=== PATIENT | male | born 1980 | race Caucasian/White ===

== ENCOUNTER 2016-05-01 14:29 | Emergency (ER) ==
[2016-05-01 14:29] VITALS: BMI 20.3
[2016-05-01 14:31] VITALS: BP 119/75; TEMP 97.5
--- NOTE | 2016-05-01 14:45 | ED.PDOC ---
General ED Provider: Dr. DORON URIBE Chief Complaint: Earache Stated Complaint: Left earache; started this AM Time Seen by Physician: 14:41 Mode of Arrival: Walk-In Information Source: Patient Exam Limitations: No limitations Nursing and Triage Documentation Reviewed and Agree: Yes Review of Systems - Review Of Systems Constitutional: Reports: No symptoms Eyes: Reports: No symptoms Ears, Nose, Mouth, Throat: Reports: Ear pain Respiratory: Reports: No symptoms All Other Systems: Reviewed and Negative Past Medical History - Past Medical History Previously Healthy: Yes Endocrine: Reports: None Cardiovascular: Reports: None Respiratory: Reports: None Hematological: Reports: None Gastrointestinal: Reports: None Genitourinary: Reports: None Neuro/Psych: Reports: None Musculoskeletal: Reports: None Cancer: Reports: None - Surgical History General Surgical History: Reports: None - Family History Family History: Reports: None - Social History Smoking Status: Never smoker Hx Substance Use: No Alcohol Screening: None Physical Exam - Physical Exam Appearance: Well-appearing Ill-appearing: Mild Pain Distress: Moderate ENT: Ears normal Neck: Supple Respiratory: Airway patent Skin: Warm, Dry, Normal color Neurological: Sensation intact Critical Care Note - Critical Care Note Total Time (mins): 7 Course - Course Vital Signs: Temp Pulse Resp BP Pulse Ox 05/01/16 14:29 97.5 F L 86 20 119/75 97 Departure - Departure Time of Disposition: 14:49 Disposition: HOME SELF-CARE Discharge Problem: Otalgia of left ear Instructions: Earache (ED) Condition: Good Pt referred to PMD for follow-up: Yes (Call for appointment) Additional Instructions: FOLLOW UP WITH YOUR DOCTOR FOR RECHECK OF YOUR EAR. Prescriptions: Amoxicillin 500 mg PO BID #14 capsule Tramadol HCl [Ultram] 50 mg PO Q4H #10 tablet Allergies/Adverse Reactions: Allergies No Known Allergies Allergy (Verified 05/01/16 14:32) Home Medications: Ambulatory Orders Amoxicillin 500 mg PO BID #14 capsule 05/01/16 Tramadol HCl [Ultram] 50 mg PO Q4H #10 tablet 05/01/16 Disposition Discussed With: Patient
== END 2016-05-01 14:57 | disposition home or self-care (01) ==
LOC: ED 14:29
DX: H92.02 Otalgia, left ear (principal)
CPT/HCPCS: 99282

== ENCOUNTER 2016-07-21 13:48 | Emergency (ER) ==
[2016-07-21 13:53] VITALS: BP 107/73; TEMP 98.3; BMI 20.2
--- NOTE | 2016-07-21 14:02 | ED.PDOC ---
General ED Provider: Dr. 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 [ End ]1030 am 98.3 89 16 08% 107/ 73 8/10. ight lateral chest Time Seen by Physician: 14:05 Mode of Arrival: Walk-In Information Source: Patient Exam Limitations: No limitations Nursing and Triage Documentation Reviewed and Agree: No Review of Systems - Review Of Systems Constitutional: Reports: No symptoms Eyes: Reports: No symptoms Ears, Nose, Mouth, Throat: Reports: No symptoms Respiratory: Reports: No symptoms Cardiac: Reports: No symptoms GI: Reports: No symptoms : Reports: No symptoms Musculoskeletal: Reports: Back pain (right lateral chest pain -not back) Skin: Reports: No symptoms Neurological: Reports: No symptoms Endocrine: Reports: No symptoms Hematologic/Lymphatic: Reports: No symptoms All Other Systems: Other Past Medical History - Past Medical History Previously Healthy: Yes Endocrine: Reports: None Cardiovascular: Reports: None Respiratory: Reports: None Hematological: Reports: None Gastrointestinal: Reports: None Genitourinary: Reports: None Neuro/Psych: Reports: None Musculoskeletal: Reports: None Cancer: Reports: None - Surgical History General Surgical History: Reports: None - Family History Family History: Reports: None - Social History Smoking Status: Never smoker Hx Substance Use: No Alcohol Screening: None Physical Exam - Physical Exam Appearance: Well-appearing, Thin Pain Distress: Moderate Neck: Supple Respiratory: Airway patent Musculoskeletal: Normal strength, ROM intact, No edema, No calf tenderness ( tender right chest wall) Skin: Warm, Dry, Normal color Neurological: Sensation intact, Motor intact, Reflexes intact, Cranial nerves intact, Alert, Oriented Psychiatric: Affect appropriate, Mood appropriate Interpretation - Radiology Interpretation Radiology Interpretation By: Radiologist Radiology Results: Negative Exam Interpreted: CXR (and right ribs) Re-Evaluation - Re-Evaluation Time of Re-Evaluation: 15:09 Status: Improved (after naprosyn) Critical Care Note - Critical Care Note Total Time (mins): 0 Course - Course Orders, Labs, Meds: Orders Category Date Time Status Naproxen [Naprosyn] MEDS 07/21/16 14:13 Discontinued 500 mg PO ONCE STA RIB, W/PA CHEST RIGHT Stat RADS 07/21/16 14:12 Completed Medications Discontinued Medications Generic Name Dose Route Start Last Admin Trade Name Freq PRN Reason Stop Dose Admin Naproxen 500 mg 07/21/16 14:13 07/21/16 14:49 Naprosyn PO 07/21/16 14:14 500 mg ONCE STA Administration Vital Signs: Temp Pulse Resp BP Pulse Ox 07/21/16 13:49 98.3 F 89 16 107/73 98 Departure - Departure Time of Disposition: 14:48 Disposition: HOME SELF-CARE Discharge Problem: Chest wall pain Intercostal muscle strain Qualifiers: Encounter type: initial encounter Qualifier Code: (S29.011A) Strain of muscle and tendon of front wall of thorax, initial encounter Instructions: Muscle Strain (ED), Musculoskeletal Pain (ED) Condition: Good Pt referred to PMD for follow-up: Yes Additional Instructions: Follow up PMD next week may follow up with [facility] return if worsening Naprosyn for pain or discomfort flexeril for spasms Prescriptions: Naproxen [Naprosyn] 500 mg PO Q12HR PRN #30 tablet PRN Reason: PAIN Cyclobenzaprine HCl [Flexeril] 5 mg PO TID PRN #15 tablet PRN Reason: Spasms Allergies/Adverse Reactions: Allergies No Known Allergies Allergy (Verified 07/21/16 13:56) Home Medications: Ambulatory Orders Cyclobenzaprine HCl [Flexeril] 5 mg PO TID PRN #15 tablet 07/21/16 Naproxen [Naprosyn] 500 mg PO Q12HR PRN #30 tablet 07/21/16
[2016-07-21] MEDS ORDERED: NAPROSYN PO STA (14:13)
--- NOTE | 2016-07-21 14:37 | DI ---
EXAM: Chest and unilateral rib HISTORY: Fall off truck tender seventh, eighth, ninth ribs laterally COMPARISON: None TECHNIQUE: Single view chest and multiple views right ribs were performed FINDINGS: Lungs are clear. No pleural effusion or pneumothorax. Heart normal in size. Mediastina l contour normal. No acute abnormalities of the bones. Specifically, no right rib fracture identif ied. IMPRESSION: 1. No right rib fracture identified. 2. No acute cardiopulmonary process
== END 2016-07-21 15:18 | disposition home or self-care (01) ==
LOC: ED 13:48
DX: R07.89 Other chest pain (principal); S29.011A Strain of muscle and tendon of front wall of thorax, initial encounter; W10.8XXA Fall (on) (from) other stairs and steps, initial encounter; Y99.0 Civilian activity done for income or pay
CPT/HCPCS: 99283

== ENCOUNTER 2016-11-24 13:36 | Emergency (ER) ==
[2016-11-24 13:43] VITALS: BP 112/71; TEMP 97.4; BMI 18.4
--- NOTE | 2016-11-24 14:08 | ED.PDOC ---
General ED Provider: Dr. FAYE ROJAS Chief Complaint: Tooth Problem Stated Complaint: tooth pain Time Seen by Physician: 13:44 (seen with nurse ) Mode of Arrival: Walk-In Information Source: Patient Exam Limitations: No limitations Nursing and Triage Documentation Reviewed and Agree: Yes EENT Complaint Exam - Dental/Oral Complaint/Exam Mechanism of Injury: No known trauma Symptoms Are: Still present Timing: Constant Initial Severity: Moderate Current Severity: Moderate Character: Reports: Aching, Throbbing Aggravating: Reports: Heat, Cold, Chewing Alleviating: Reports: None Cardiac Risk Factors: Reports: None Dental/Oral Surgical History: Reports: None Tooth Findings: Present: Gross decay, Gross caries, Dental fracture Cervical Lymphadenopathy Present: No Facial Swelling Present: No Bleeding Present: No Oropharynx Findings: Absent: Clots, Active bleeding Septal Hematoma: No Foreign Body Present: No Dysphagia Present: No Drooling Present: No Asymmetrical Tonsillar Swelling Present: No Uvula Midline: No Tess-tonsillar Fluctuence: No Trismus Present: No Palatal Petechiae Present: No Scarlatinaform Rash Present: No Teeth Picture: 1 - decay Differential Diagnoses: Dental Caries, Fractured Tooth Review of Systems - Review Of Systems Constitutional: Reports: No symptoms Eyes: Reports: No symptoms Ears, Nose, Mouth, Throat: Reports: No symptoms Respiratory: Reports: No symptoms Cardiac: Reports: No symptoms GI: Reports: No symptoms : Reports: No symptoms Musculoskeletal: Reports: No symptoms Skin: Reports: No symptoms Neurological: Reports: No symptoms Endocrine: Reports: No symptoms Hematologic/Lymphatic: Reports: No symptoms All Other Systems: Reviewed and Negative Past Medical History - Past Medical History Previously Healthy: Yes Endocrine: Reports: None Cardiovascular: Reports: None Respiratory: Reports: None Hematological: Reports: None Gastrointestinal: Reports: None Genitourinary: Reports: None Neuro/Psych: Reports: None Musculoskeletal: Reports: None Cancer: Reports: None - Surgical History General Surgical History: Reports: None - Family History Family History: Reports: None - Social History Smoking Status: Never smoker Hx Substance Use: No Alcohol Screening: None - Immunizations Tetanus Shot up to Date: Yes Physical Exam - Physical Exam Appearance: Well-appearing, No pain distress, Well-nourished Eyes: GARRETT, EOMI, Conjunctiva clear ENT: Ears normal, Nose normal, Oropharynx normal Respiratory: Airway patent, Breath sounds clear, Breath sounds equal, Respirations nonlabored Cardiovascular: RRR, Pulses normal, No rub, No murmur GI/: Soft, Nontender, No masses, Bowel sounds normal, No Organomegaly Musculoskeletal: Normal strength, ROM intact, No edema, No calf tenderness Skin: Warm, Dry, Normal color Neurological: Sensation intact, Motor intact, Reflexes intact, Cranial nerves intact, Alert, Oriented Psychiatric: Affect appropriate, Mood appropriate Critical Care Note - Critical Care Note Total Time (mins): 0 Course - Course Vital Signs: Temp Pulse Resp BP Pulse Ox 11/24/16 13:36 97.4 F L 90 16 112/71 97 Departure - Departure Time of Disposition: 14:07 Disposition: HOME SELF-CARE Discharge Problem: Toothache Instructions: Toothache (ED) Condition: Good Pt referred to PMD for follow-up: Yes Additional Instructions: Please call your Family Physician as soon as possible to schedule a follow-up appointment. Prescriptions: Amoxicillin 500 mg PO Q8HR #21 tablet Hydrocodone/Acetaminophen [[place] 10-325 Tablet] 1 each PO Q8HR #14 tablet Allergies/Adverse Reactions: Allergies No Known Allergies Allergy (Verified 11/24/16 13:42) Home Medications: Ambulatory Orders Amoxicillin 500 mg PO Q8HR #21 tablet 11/24/16 Hydrocodone/Acetaminophen [[place] 10-325 Tablet] 1 each PO Q8HR #14 tablet
== END 2016-11-24 14:16 | disposition home or self-care (01) ==
LOC: ED 13:36
DX: K08.89 Other specified disorders of teeth and supporting structures (principal); K02.7 Dental root caries; S02.5XXA Fracture of tooth (traumatic), initial encounter for closed fracture
CPT/HCPCS: 99282

== ENCOUNTER 2017-04-27 10:47 | Emergency (ER) ==
[2017-04-27] MEDS ORDERED: NORCO 10-325 PO STA (10:50)
[2017-04-27] MEDS ORDERED: TORADOL IM STA (10:50)
[2017-04-27 11:00] VITALS: BP 123/77; TEMP 98; BMI 18.0
--- NOTE | 2017-04-27 11:25 | DI ---
EXAM: LEFT SHOULDER HISTORY: Injury, pain FINDINGS: Left shoulder three-view. Bone and joint structures are within normal limits. There is no joint dislocation or fracture identified. Bone density and soft tissues are unremarkable. IMPRESSION: Within normal limits.
--- NOTE | 2017-04-27 11:25 | DI ---
EXAM: Left clavicle two views HISTORY: Injury, pain FINDINGS: Bone and joint structures appear normal. There is no displaced fracture or joint dislocat ion seen. General bone density and soft tissues are within normal limits. IMPRESSION: Findings within normal limits.
--- NOTE | 2017-04-27 11:57 | ED.PDOC ---
General ED Provider: Dr. FAYE ROJAS Chief Complaint: Shoulder Pain/Injury Stated Complaint: shoulder pain Time Seen by Physician: 11:00 (seen with alejandra at all times ) Mode of Arrival: Walk-In Information Source: Patient Exam Limitations: No limitations Nursing and Triage Documentation Reviewed and Agree: Yes Reviewed sepsis parameters & appropriate labs ordered?: Yes System Inflammatory Response Syndrome: Not Applicable Sepsis Protocol: For patient's 13 years and over: Temp is 96.8 and below OR 101 and greater Pulse >90 BPM Resp >20/minute Acutely Altered Mental Status Are patient's symptoms suggestive of a new infection, such as: -Pneumonia -Skin, Soft Tissue -Endocarditis -UTI -Bone, Joint Infection -Implantable Device -Acute Abdominal Infection -Wound Infection -Meningitis -Blood Stream Catheter Infection -Unknown System Inflammatory Response Syndrome: Not Applicable Musculoskeletal Complaint Exam - Shoulder Pain Complaint/Exam Mechanism of Injury: Reports: Trauma Onset/Duration: 3 days ago fell Symptoms Are: Still present Timing: Constant Initial Severity: Moderate Current Severity: Moderate Location: Reports: Discrete Character: Reports: Aching, Throbbing, Spasmodic, Stiffness Alleviating: Reports: Rest Aggravating: Reports: Movement, Lifting, Flexion, Extension, Internal rotation, External rotation, Abduction Associated Signs and Symptoms: Denies: Swelling, Redness, Bruising, Fever, Weakness, Numbness, Tingling Non-Orthopedic Risk Factors: Reports: None DVT Risk Factors: Reports: None Septic Arthritis Risk Factors: Reports: None Related Surgical History: Reports: None Tenderness: Present: Clavicle, AC joint, Proximal humerus, Rotator cuff muscles Limited Range of Motion: Present: Abduction, Flexion, Extension, Rotator cuff muscles, Rotator cuff insertion Differential Diagnoses: Arthritis, Closed Fracture, Rotator Cuff Injury, Sprain , Strain, Tendonitis Review of Systems - Review Of Systems Constitutional: Reports: No symptoms Eyes: Reports: No symptoms Ears, Nose, Mouth, Throat: Reports: No symptoms Respiratory: Reports: No symptoms Cardiac: Reports: No symptoms GI: Reports: No symptoms : Reports: No symptoms Musculoskeletal: Reports: Joint pain (left shoulder ) Skin: Reports: No symptoms Neurological: Reports: No symptoms Endocrine: Reports: No symptoms Hematologic/Lymphatic: Reports: No symptoms All Other Systems: Reviewed and Negative Past Medical History - Past Medical History Previously Healthy: Yes Endocrine: Reports: None Cardiovascular: Reports: None Respiratory: Reports: None Hematological: Reports: None Gastrointestinal: Reports: None Genitourinary: Reports: None Neuro/Psych: Reports: None Musculoskeletal: Reports: None Cancer: Reports: None - Surgical History General Surgical History: Reports: None - Family History Family History: Reports: None - Social History Smoking Status: Never smoker Hx Substance Use: No Alcohol Screening: None Physical Exam - Physical Exam Appearance: Well-appearing, No pain distress, Well-nourished Eyes: GARRETT, EOMI, Conjunctiva clear ENT: Ears normal, Nose normal, Oropharynx normal Respiratory: Airway patent, Breath sounds clear, Breath sounds equal, Respirations nonlabored Cardiovascular: RRR, Pulses normal, No rub, No murmur GI/: Soft, Nontender, No masses, Bowel sounds normal, No Organomegaly Musculoskeletal: Limited ROM (left shoulder mainly abduction) Skin: Warm, Dry, Normal color Neurological: Sensation intact, Motor intact, Reflexes intact, Cranial nerves intact, Alert, Oriented Psychiatric: Affect appropriate, Mood appropriate Interpretation - Radiology Interpretation Radiology Interpretation By: Radiologist Radiology Results: No acute changes Critical Care Note - Critical Care Note Total Time (mins): 0 Course - Course Orders, Labs, Meds: Orders Category Date Time Status Hydrocodone Bit/Acetaminophen [[place] 10-325] MEDS 04/27/17 10:50 Discontinued 1 tab PO ONCE STA Ketorolac Tromethamine [Toradol] MEDS 04/27/17 10:50 Discontinued 60 mg IM ONCE STA CLAVICLE, LEFT 2 VIEWS Stat RADS 04/27/17 10:50 Completed SHOULDER, LEFT MIN 2V Stat RADS 04/27/17 10:49 Completed Medications Discontinued Medications Generic Name Dose Route Start Last Admin Trade Name Johnny PRN Reason Stop Dose Admin Acetaminophen/Hydrocodone Bitart 1 tab 04/27/17 10:50 04/27/17 11:41 [place] 10-325 PO 04/27/17 10:51 1 tab ONCE STA Administration Ketorolac Tromethamine 60 mg 04/27/17 10:50 04/27/17 11:28 Toradol IM 04/27/17 10:51 60 mg ONCE STA Administration Vital Signs: Temp Pulse Resp BP Pulse Ox 04/27/17 10:48 98.0 F 81 22 123/77 95 Departure - Departure Time of Disposition: 11:57 Disposition: HOME SELF-CARE Discharge Problem: Shoulder pain, Injury of shoulder region Rotator cuff arthropathy Qualifiers: Laterality: left Qualified Code(s): M12.812 - Other specific arthropathies, not elsewhere classified, left shoulder Instructions: Rotator Cuff Tendinitis (ED), Rotator Cuff Injury (ED), Tendinitis (ED) Condition: Good Pt referred to PMD for follow-up: Yes IPMP verified?: Yes Additional Instructions: Please call your Family Physician as soon as possible to schedule a follow-up appointment. Allergies/Adverse Reactions: Allergies No Known Allergies Allergy (Verified 11/24/16 13:42) Home Medications: Ambulatory Orders Hydrocodone/Acetaminophen [[place] 5-325 Tablet] 1 each PO Q6HR PRN #12 tablet
== END 2017-04-27 12:15 | disposition home or self-care (01) ==
LOC: ED 10:47
DX: M12.812 Other specific arthropathies, not elsewhere classified, left shoulder (principal); W19.XXXA Unspecified fall, initial encounter
CPT/HCPCS: 96372; 99283

== ENCOUNTER 2017-06-02 12:46 | Emergency (ER) ==
--- NOTE | 2017-06-02 13:22 | ED.PDOC ---
General ED Provider: Dr. FAYE ROJAS Chief Complaint: Multiple Trauma Stated Complaint: TREE LIMB IMACTED PT'S HEAD NECK PAIN , AND HEAD ACHE Time Seen by Physician: 12:50 (NO LOC ) Mode of Arrival: Walk-In Information Source: Family, Other Exam Limitations: No limitations Nursing and Triage Documentation Reviewed and Agree: Yes Reviewed sepsis parameters & appropriate labs ordered?: No System Inflammatory Response Syndrome: Not Applicable Sepsis Protocol: For patient's 13 years and over: Temp is 96.8 and below OR 101 and greater Pulse >90 BPM Resp >20/minute Acutely Altered Mental Status Are patient's symptoms suggestive of a new infection, such as: -Pneumonia -Skin, Soft Tissue -Endocarditis -UTI -Bone, Joint Infection -Implantable Device -Acute Abdominal Infection -Wound Infection -Meningitis -Blood Stream Catheter Infection -Unknown System Inflammatory Response Syndrome: Not Applicable Trauma/Injury Complaint Exam - Head Injury Complaint/Exam Location of Pain: Reports: Other (HEADACHE AND NECK PAIN) Mechanism of Injury: Reports: Trauma Onset/Duration: 1 HR AGO Symptoms Are: Still present Initial Severity: Mild Current Severity: Mild Character: Reports: Dull Aggravating: Reports: None Alleviating: Reports: None Associated Signs and Symptoms: Reports: Neck pain. Denies: Confusion, Memory loss, Seizure, Epistaxis, Dental malocclusion, Nausea, Vomiting Loss of Consciousness: None SDH Risk Factors: Present: Male Cervical Spine Injury Risk Factors: Present: Post-Midline CS tender. Absent: Evidence of intoxication, Altered LOC, Focal neuro deficit, Distracting injuries (C COLOR PLACED IN THE ED UPON ARRIVAL) Related Surgical History: Reports: None C-Collar in Place: YES Immobilization Removed Post Exam: No Head Injury Findings: Present: Normal findings Glascow Coma Scale (see protocol): 15 Focal Weakness: Present: None Gait: Normal Gag Reflex Present: Yes Finger to Nose: Normal Babinski Sign: Negative Right, Negative Left Nexus Low Risk Criteria: No evidence of intoxicat., No Altered LOC, No focal neuro deficit, No distracting injuries Differential Diagnoses: Cervical Fracture, Sprain, Strain, Trauma Review of Systems - Review Of Systems Constitutional: Reports: No symptoms Eyes: Reports: No symptoms Ears, Nose, Mouth, Throat: Reports: No symptoms Respiratory: Reports: No symptoms Cardiac: Reports: No symptoms GI: Reports: No symptoms : Reports: No symptoms Musculoskeletal: Reports: Neck pain Skin: Reports: No symptoms Neurological: Reports: Headache Endocrine: Reports: No symptoms Hematologic/Lymphatic: Reports: No symptoms All Other Systems: Reviewed and Negative Past Medical History - Past Medical History Previously Healthy: Yes Endocrine: Reports: None Cardiovascular: Reports: None Respiratory: Reports: None Hematological: Reports: None Gastrointestinal: Reports: None Genitourinary: Reports: None Neuro/Psych: Reports: None Musculoskeletal: Reports: None Cancer: Reports: None - Surgical History General Surgical History: Reports: None - Family History Family History: Reports: None - Social History Smoking Status: Current some day smoker Hx Substance Use: No Alcohol Screening: Occasionally - Immunizations Tetanus Shot up to Date: Yes Physical Exam - Physical Exam Appearance: Well-appearing, No pain distress, Well-nourished Eyes: GARRETT, EOMI, Conjunctiva clear ENT: Ears normal, Nose normal, Oropharynx normal Respiratory: Airway patent, Breath sounds clear, Breath sounds equal, Respirations nonlabored Cardiovascular: RRR, Pulses normal, No rub, No murmur GI/: Soft, Nontender, No masses, Bowel sounds normal, No Organomegaly Musculoskeletal: Normal strength, ROM intact, No edema, No calf tenderness Skin: Warm, Dry, Normal color Neurological: Sensation intact, Motor intact, Reflexes intact, Cranial nerves intact, Alert, Oriented Psychiatric: Affect appropriate, Mood appropriate Interpretation - Radiology Interpretation Radiology Interpretation By: Radiologist (C1 FX DOCTOR MONAE) Re-Evaluation - Re-Evaluation Time of Re-Evaluation: 14:34 (August PRESENT REPEAT NEURO WNL ) Status: Unchanged Vital Signs Stable: Yes Pain Level: 3 Appearance: NAD Lungs: Clear Skin: Warm and Dry Neuro: Alert and Oriented X3 CV: Other (BACK BAORD C COLOR IN PLACE) Physician Notification - Case Discussed Physician Notified: MONROE PRASAD Time of Notification: 14:33 (TRANSFER NOW SAID THE [employer]IC) Critical Care Note - Critical Care Note Total Time (mins): 0 Course - Course Orders, Labs, Meds: Orders Category Date Time Status Lorazepam Inj [Ativan] MEDS 06/02/17 14:14 Discontinued 0.5 mg IVP ONCE STA Morphine Sulfate [Morphine 2 mg/ml Syringe] MEDS 06/02/17 14:14 Discontinued 2 mg IM ONCE STA Ondansetron HCl/Pf [Zofran 4 mg/2 ml] MEDS 06/02/17 14:14 Discontinued 4 mg IVP ONCE STA CT CERVICAL SPINE W/O CONTRAST Stat RADS 06/02/17 13:[address] HEAD W/O CONTRAST Stat RADS 06/02/17 13:[address] THORACIC SPINE W/O CONTRAST Stat RADS 06/02/17 13:08 Completed Medications Discontinued Medications Generic Name Dose Route Start Last Admin Trade Name Johnny PRN Reason Stop Dose Admin Lorazepam 0.5 mg 06/02/17 14:14 Ativan IVP 06/02/17 14:15 ONCE STA Morphine Sulfate 2 mg 06/02/17 14:14 Morphine 2 Mg/Ml Syringe IM 06/02/17 14:15 ONCE STA Ondansetron HCl 4 mg 06/02/17 14:14 Zofran 4 Mg/2 Ml IVP 06/02/17 14:15 ONCE STA Vital Signs: Temp Pulse Resp BP Pulse Ox 06/02/17 14:15 97.6 F 63 16 126/84 95 06/02/17 12:47 97.3 F L 90 20 136/88 100 Departure - Departure Time of Disposition: 15:00 (THIS PT WAS PLACED ON THE C COLOR UPON PRESETATION TO THE ED AND DID REMAIN SO AT ALL TIMES .) Disposition: TSF SHORT-TRM HOSP Discharge Problem: Neck pain Closed Sahil fracture Qualifiers: Encounter type: initial encounter Qualified Code(s): S12.01XA - Stable burst fracture of first cervical vertebra, initial encounter for closed fracture Instructions: Cervical Sprain (ED), Neck Pain (ED), Acute Neck Pain (ED) Condition: Good Pt referred to PMD for follow-up: Yes IPMP verified?: No Additional Instructions: Please call your Family Physician as soon as possible to schedule a follow-up appointment. Prescriptions: Nabumetone [Relafen] 750 mg PO BIDWM #5 tablet Allergies/Adverse Reactions: Allergies No Known Allergies Allergy (Verified 11/24/16 13:42) Home Medications: Ambulatory Orders Nabumetone [Relafen] 750 mg PO BIDWM #5 tablet 06/02/17 Transfer Form Completed: Yes Disposition Discussed With: Patient
--- NOTE | 2017-06-02 14:03 | CT ---
EXAM: CT thoracic spine without contrast. HISTORY: Initial presentation for back injury. COMPARISON: None available. TECHNIQUE: Multiple axial images of the thoracic spine were obtained without intravenous contrast. Images were reformatted in the sagittal and coronal planes. FINDINGS: The normal curvature and alignment are maintained. Vertebral body and intervertebral disc heights are normal. No fracture or subluxation is seen. No significant central canal stenosis iden tified. Adjacent soft tissues are unremarkable. IMPRESSION: No acute abnormality of the thoracic spine.
--- NOTE | 2017-06-02 14:04 | CT ---
EXAM: CT head without contrast HISTORY: Head pain post injury COMPARISON: Same day CT cervical and thoracic spine CT TECHNIQUE: Serial axial images of the brain were obtained from the skull base to the vertex without IV contrast. FINDINGS: The ventricles, cisterns and sulci are normal. The baumann-white matter junction is maintain ed. No midline shift or mass is identified. There is no abnormal intra or extra-axial fluid collect ion. The paranasal sinuses demonstrates scattered layering fluid in the maxillary sinuses. The mast oid air cells are clear. The osseous calvarium is intact. Incidentally noted is fracture of the C1 r ing IMPRESSION: 1. No acute intracranial abnormality or hemorrhage. 2. Incidentally noted is a C1 fracture better seen on cervical spine. 3. Layering fluid in the maxillary sinuses may represent paranasal sinus disease.
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
[2017-06-02] MEDS ORDERED: ZOFRAN 4 MG/2 ML IVP STA (14:14)
[2017-06-02] MEDS ORDERED: ATIVAN IVP STA (14:14)
[2017-06-02] MEDS ORDERED: MORPHINE 2 MG/ML SYRINGE IM STA (14:14)
[2017-06-02 14:22] VITALS: BP 126/84; TEMP 97.6; BMI 18.1
== END 2017-06-02 15:54 | disposition short-term general hospital (02) ==
LOC: ED 12:46
DX: S12.01XA Stable burst fracture of first cervical vertebra, initial encounter for closed fracture (principal); S09.90XA Unspecified injury of head, initial encounter; F17.210 Nicotine dependence, cigarettes, uncomplicated; W22.8XXA Striking against or struck by other objects, initial encounter
CPT/HCPCS: 96374; 96375; 99285

== ENCOUNTER 2017-08-02 14:00 | Outpatient (RCR) ==
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
--- NOTE | 2017-07-16 16:40 | RS.OPPTDN ---
Subjective Date of Note: 07/16/17 Visit #: 2 Date of Evaluation: 07/14/17 Payer Source: Workman's Comp Treatment Diagnosis: cervical pain, s/p cervical spinal fusion Current Subjective/complaints:: Patient says that he remains nervous about whether his neck is healing and performing any mobility of his neck. He says he is very compliant with all restrictions and does try to limit pain medication. Luna says his pain is slightly higher on the L side than R. He is eager to attend follow up July 21. *Precautions: Wear cervical collar at all times except PT, no lifting, twisting - Treatment Modality: Electrical Stim Unattended Parameters/Method Applied: hivolt 2 pads to the L cervical paraspinals and UT @ 155-165 pk volts and R at 145 pk volts x 20 mins Patient Position: Sitting - Heat/Cryotherapy Treatment: Hot Pack (cervical) Interventions - Exercise/Activities/Manual Therapy Exercises/Activities: Light palpation to the bilateral UT and lower cspine paraspinals. Very limited PROM for rotation only. Assisted and active shoulder shrugs, scap retraction. Bilateral UE lift to shoulder height only. Patient education on diagnosis and postural mechanics. Reviewed HEP and limitations. Total minutes of Exercise: 18 Manual Therapy: n/a HOME EXERCISE PROGRAM: isometric cervical flex, R lat flex, L lat flex, scapular retraction - Charges Timed Code Treatment Minutes: 18 Total Treatment Time: 38 Procedures billed for this date of service:: hp, estim (un), ex Assessment: Patient compliant with all limitations. He verbalizes improved pain and stiffness with estim treatment today. He presents anxious and guarded , but this improves with discussion and time. Limitations with ROM per restrictions and brace. Tenderness to light to mild palpation to bilateral UT. Patient Education: Education of diagnosis, Body/Joint mechanics, Home Exercise Program, Education of Plan of Care Patient demonstrates compliance with HEP?: Yes Short Term Goals Goal #1: pt rate pain <6 with activity Goal to be met by: 07/28/17 Progress towards Goal:: Progressing Goal #2: pt independent with initial HEP Goal to be met by: 07/28/17 Progress towards Goal:: Progressing Goal #3: pt with decreased muscle tightness and guarding of cervical paraspinals Goal to be met by: 07/28/17 Fdc Goals Goal #1: pt rate pain <4 with activity. Goal to be met by: 08/11/17 Goal #2: pt with no reports of radiating pain into shlds. Goal to be met by: 08/11/17 Goal #3: pt able to tolerate ROM cervical spine WFL's min discomfort when MD allows Goal to be met by: 08/11/17 Plan PLAN OF CARE EXPIRES ON:: 08/11/17 ORDER # VISITS AND/OR THROUGH DATE: 08/11/17 PLAN: Patient to attend [facility] for modalities and therex as mackenzie. Patient to return to MD for follow up 07/21/17.
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
--- NOTE | 2017-07-21 16:23 | RS.OPPTDN ---
Subjective Date of Note: 07/21/17 Visit #: 4 Date of Evaluation: 07/14/17 Payer Source: Workman's Comp Treatment Diagnosis: cervical pain, s/p cervical spinal fusion Current Subjective/complaints:: Patient says that his MD follow up went well. Reports his hard collar is discontinued and can continue to progress slowly with neck mobility and avoiding heavy lifting. He is pleased that it is removed , but also remains anxious about it being gone and is cautious. He says he finds himself still using his body to compensate for neck motion, but will work on turning his neck as he is able. *Precautions: Wear cervical collar at all times except PT, no lifting, twisting - Treatment Modality: Electrical Stim Unattended Parameters/Method Applied: 4 pads hivolt controlled L side seperately from R @ 170 and 165 pk volts respectively x 20 mins. Patient Position: Sitting - Heat/Cryotherapy Treatment: Hot Pack (cervical x 20 with estim) Interventions - Exercise/Activities/Manual Therapy Exercises/Activities: STM to the bilateral UT and lower cspine paraspinals with progressing palpation from previous treatment. Increasing PROM for rotation and SB only. Assisted and active shoulder shrugs, scap retraction. Manual isometrics for L and R SB in neutral and retraction 2 x 5. Bilateral UE lift to above shoulder height with 2# wand. Progressed to green tband for scap retraction x 10. Continued pt education on diagnosis and postural mechanics. Reviewed HEP and added green tband for retraction. Total minutes of Exercise: 22 Manual Therapy: n/a HOME EXERCISE PROGRAM: isometric cervical flex, R lat flex, L lat flex, scapular retraction - Charges Timed Code Treatment Minutes: 22 Total Treatment Time: 42 Procedures billed for this date of service:: hp, estim (un), ex Assessment: Patient's cervical brace was discontinued today and he is able to mackenzie increased PROM to SB and rotation, but does have difficulty mackenzie to the R. Slight decrease in muscle guarding with STM today. He remains cautious, but pleased that cspine is healing and brace was removed. Patient Education: Body/Joint mechanics, Home Exercise Program, Education of Plan of Care Patient demonstrates compliance with HEP?: Yes Short Term Goals Goal #1: pt rate pain <6 with activity Goal to be met by: 07/28/17 Progress towards Goal:: Progressing Goal #2: pt independent with initial HEP Goal to be met by: 07/28/17 Progress towards Goal:: Progressing Goal #3: pt with decreased muscle tightness and guarding of cervical paraspinals Goal to be met by: 07/28/17 Progress towards Goal:: Progressing Mcfp Goals Goal #1: pt rate pain <4 with activity. Goal to be met by: 08/11/17 Goal #2: pt with no reports of radiating pain into shlds. Goal to be met by: 08/11/17 Goal #3: pt able to tolerate ROM cervical spine WFL's min discomfort when MD allows Goal to be met by: 08/11/17 Plan PLAN OF CARE EXPIRES ON:: 08/11/17 ORDER # VISITS AND/OR THROUGH DATE: 08/11/17 PLAN: Patient to continue per MD request and original order to further decrease neck pain, muscle guarding, and improve ROM/strength to the cspine.
--- NOTE | 2017-07-23 15:38 | RS.OPPTDN ---
Subjective Date of Note: 07/23/17 Visit #: 5 Date of Evaluation: 07/14/17 Payer Source: Workman's Comp Treatment Diagnosis: cervical pain, s/p cervical spinal fusion Current Subjective/complaints:: Patient says he is sleeping better and noticing improved mobility, although he is still guarding against too much or too quick of movement to his neck. He says he is not having to move his whole body now when talking to someone. *Precautions: Wear cervical collar at all times except PT, no lifting, twisting - Treatment Modality: Electrical Stim Unattended Parameters/Method Applied: IFC surrounding the cspine @ 22 pk volts x 20mins Patient Position: Sitting - Heat/Cryotherapy Treatment: Hot Pack (cervical with estim) Interventions - Exercise/Activities/Manual Therapy Exercises/Activities: Increasing PROM for rotation and SB only in supine. Assisted and active shoulder shrugs, scap retraction. Manual isometrics for L and R SB in neutral and retraction 2 x 5. Continued pt education on diagnosis and postural mechanics. Reviewed HEP and added green tband for retraction. Total minutes of Exercise: 8 Manual Therapy: STM to the bilateral UT and lower cspine paraspinals with progressing palpation from previous treatment in sitting and in supine. Gentle myofascial release in supine and gentle scar tissue massage at the distal end of his incision to aid in scar tissue healing. Ended with shoulder shrugs in supine and AROM for SB and rotation. Total minutes of Manual Therapy: 14 HOME EXERCISE PROGRAM: isometric cervical flex, R lat flex, L lat flex, scapular retraction - Charges Timed Code Treatment Minutes: 22 Total Treatment Time: 42 Procedures billed for this date of service:: hp, estim (un), MT Assessment: Patient demo improved toleration to MT and exercise. He experiences improved sleep and muscle guarding as well with discontinuation of cervical brace. 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 Goal to be met by: 08/11/17 Goal #2: pt with no reports of radiating pain into shlds. Goal to be met by: 08/11/17 Goal #3: pt able to tolerate ROM cervical spine WFL's min discomfort when MD allows Goal to be met by: 08/11/17 Plan PLAN OF CARE EXPIRES ON:: 08/11/17 ORDER # VISITS AND/OR THROUGH DATE: 08/11/17 PLAN: Patient to continue for modalities and progressing therex
--- NOTE | 2017-07-26 16:27 | RS.OPPTDN ---
Subjective Date of Note: 07/26/17 Visit #: 6 Date of Evaluation: 07/14/17 Payer Source: Workman's Comp Treatment Diagnosis: cervical pain, s/p cervical spinal fusion Current Subjective/complaints:: Patient reports he continues to have stiffness in the neck and turns his body when trying to turn his head. States he feels better after treatment. *Precautions: Wear cervical collar at all times except PT, no lifting, twisting Pain Assessment - Pain Description Pain Location: neck Current Pain Intensity: 10/12 - Treatment Modality: Electrical Stim Unattended Parameters/Method Applied: [id number] IFC to 11 p.v. with 4 small pads to the cervical paraspinals to the trap trigger points with HP prior to MT. Patient Position: Sitting - Heat/Cryotherapy Treatment: Hot Pack ([id number] with Estim) Interventions - Exercise/Activities/Manual Therapy Exercises/Activities: PROM for rotation and SB only in supine. Manual isometrics for cervical retraction. Scapular retraction. Anterior chest stretch in supine. Total minutes of Exercise: 5mins Manual Therapy: Gentle myofascial release in supine and gentle scar tissue massage. Trigger point release to the bilateral traps. Gentle occipital release and light distraction. Total minutes of Manual Therapy: 10mins HOME EXERCISE PROGRAM: isometric cervical flex, R lat flex, L lat flex, scapular retraction - Charges Timed Code Treatment Minutes: 15mins Total Treatment Time: 40mins Procedures billed for this date of service:: HP, Estim unattended, MT Assessment: Patient reporting reduction in pain and increase in flexibility following treatment. Patient Education: Body/Joint mechanics, Home Exercise Program, Activity Modification Patient demonstrates compliance with HEP?: Yes Short Term Goals Goal #1: pt rate pain <6 with activity Goal to be met by: 07/28/17 Progress towards Goal:: Progressing Goal #2: pt independent with initial HEP Goal to be met by: 07/28/17 Progress towards Goal:: Progressing Goal #3: pt with decreased muscle tightness and guarding of cervical paraspinals Goal to be met by: 07/28/17 Progress towards Goal:: Progressing Senior Care Goals Goal #1: pt rate pain <4 with activity. Goal to be met by: 08/11/17 Goal #2: pt with no reports of radiating pain into shlds. Goal to be met by: 08/11/17 Goal #3: pt able to tolerate ROM cervical spine WFL's min discomfort when MD allows Goal to be met by: 08/11/17 Plan PLAN OF CARE EXPIRES ON:: 08/11/17 ORDER # VISITS AND/OR THROUGH DATE: 08/11/17 PLAN: Continue modalities and progress exercise to increase ROM and functional activity level.
--- NOTE | 2017-07-28 14:42 | RS.CXNS ---
Date of scheduled appointment: 07/28/17 Type: Cancel Reason for Cancel/NS: toothache
--- NOTE | 2017-07-30 16:48 | RS.OPPTDN ---
Subjective Date of Note: 07/30/17 Visit #: 7 Date of Evaluation: 07/14/17 Payer Source: Workman's Comp Treatment Diagnosis: cervical pain, s/p cervical spinal fusion Current Subjective/complaints:: Patient says he has more motion to each side and is trying not to use his body to turn. He reports he had swelling to the L side of his face, which did put pressure on his neck due to abcessed tooth earlier this week. *Precautions: Wear cervical collar at all times except PT, no lifting, twisting - Treatment Modality: Electrical Stim Unattended Parameters/Method Applied: hivolt 4 small pads @ 145-160pk x 20 mins Treatment Area: bilateral UT and cervical paraspinals Patient Position: Sitting - Heat/Cryotherapy Treatment: Hot Pack Interventions - Exercise/Activities/Manual Therapy Exercises/Activities: PROM for rotation and SB only in supine. Patient performs active cervical flexion and extension (short ranges only due to ability). Manual isometrics for cervical retraction. Scapular retraction. 3 04/06# wand for bilateral shoulder flexion and green tband for retraction and bilateral shoulder extension x 15. Total minutes of Exercise: 13 Manual Therapy: Gentle myofascial release in supine and gentle scar tissue massage. Trigger point release to the bilateral traps. Total minutes of Manual Therapy: 12 HOME EXERCISE PROGRAM: isometric cervical flex, R lat flex, L lat flex, scapular retraction - Charges Timed Code Treatment Minutes: 25 Total Treatment Time: 45 Procedures billed for this date of service:: hp, estim (un), ex, MT Assessment: Patient recently with dental issue causing swelling and pressure to the L side of the neck. He is progressing with ROM to cspine and strength to the UEs. 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 Goal to be met by: 08/11/17 Goal #2: pt with no reports of radiating pain into shlds. Goal to be met by: 08/11/17 Goal #3: pt able to tolerate ROM cervical spine WFL's min discomfort when MD allows Goal to be met by: 08/11/17 Plan PLAN OF CARE EXPIRES ON:: 08/11/17 ORDER # VISITS AND/OR THROUGH DATE: 08/11/17 PLAN: Patient to continue with modalties and therex to reduce pain and improve motion/strength.
--- NOTE | 2017-08-02 15:58 | RS.OPPTDN ---
Subjective Date of Note: 08/02/17 Visit #: 8 Date of Evaluation: 07/14/17 Payer Source: Workman's Comp Treatment Diagnosis: cervical pain, s/p cervical spinal fusion Current Subjective/complaints:: Patient says he plans to do some light yardwork today (pulling weeds). He says he will use caution and try not to over do it. Reports he continues to notice improved mobility to his neck and less tenderness. *Precautions: Wear cervical collar at all times except PT, no lifting, twisting - Treatment Modality: Electrical Stim Unattended Parameters/Method Applied: IFC @ 21 pk volts x 20 mins to the bilateral UT and mid cervical paraspinals Patient Position: Sitting - Heat/Cryotherapy Treatment: Hot Pack Interventions - Exercise/Activities/Manual Therapy Exercises/Activities: PROM for rotation and SB only in sitting. Patient performs active cervical flexion and extension (short ranges only due to ability ). Manual isometrics for cervical retraction. Scapular retraction. Progressed to 4 1/2# wand for bilateral shoulder flexion and green tband for retraction and bilateral shoulder extension x 15. Bilateral shoulder ER with green tband also 2x10. Total minutes of Exercise: 13 Manual Therapy: Gentle myofascial release in supine and gentle scar tissue massage. Trigger point release to the bilateral traps. Total minutes of Manual Therapy: 12 HOME EXERCISE PROGRAM: isometric cervical flex, R lat flex, L lat flex, scapular retraction - Charges Timed Code Treatment Minutes: 25 Total Treatment Time: 45 Procedures billed for this date of service:: hp, estim (un), ex, MT Assessment: Patient demo less tenderness with deeper palpation to the UT bilaterally, but does maintain sensitivity to the upper cervical paraspinals. He demo slightly more rotation bilaterally to ~25 degrees. Patient Education: Education of diagnosis, Body/Joint mechanics, Home Safety Patient demonstrates compliance with HEP?: Yes Short Term Goals Goal #1: pt rate pain <6 with activity Goal to be met by: 07/28/17 Progress towards Goal:: Met Goal #2: pt independent with initial HEP Goal to be met by: 07/28/17 Progress towards Goal:: Met Goal #3: pt with decreased muscle tightness and guarding of cervical paraspinals Goal to be met by: 07/28/17 Progress towards Goal:: Partially Met Director [employer] Goals Goal #1: pt rate pain <4 with activity. Goal to be met by: 08/11/17 Goal #2: pt with no reports of radiating pain into shlds. Goal to be met by: 08/11/17 Goal #3: pt able to tolerate ROM cervical spine WFL's min discomfort when MD allows Goal to be met by: 08/11/17 Plan PLAN OF CARE EXPIRES ON:: 08/11/17 ORDER # VISITS AND/OR THROUGH DATE: 08/11/17 PLAN: Patient to continue progressing with ROM, strength, and pain.
== END 2017-08-02 23:59 | disposition short-term general hospital (02) ==
PROVIDERS: ATTEND Neurological Surgery
DX: M54.2 Cervicalgia (principal); Z98.890 Other specified postprocedural states; S12.02 Unstable burst fracture of first cervical vertebra

== ENCOUNTER 2017-08-12 14:00 | Outpatient (RCR) ==
--- NOTE | 2017-08-04 15:47 | RS.OPPTDN ---
Subjective Date of Note: 08/04/17 Visit #: 9 Date of Evaluation: 07/14/17 Payer Source: Workman's Comp Treatment Diagnosis: cervical pain, s/p cervical spinal fusion Current Subjective/complaints:: Patient c/o increased pain today to the R upper cervical paraspinals. He says it feels tight here as well. Reports he did pull weeds yesterday, but not much and did not seem to have any trouble with it. He reports taking Tylenol prior to coming into therapy today. He says this did "dull" the pain slightly. *Precautions: Wear cervical collar at all times except PT, no lifting, twisting Pain Assessment - Pain Description Pain Location: 11/12 mostly R sided neck and pain just above the occiput - Treatment Modality: Electrical Stim Unattended Parameters/Method Applied: 4 small pads IFC @ 12 pk volts x 20 mins surrounding the bilateral UT Patient Position: Sitting - Heat/Cryotherapy Treatment: Cryotherapy Interventions - Exercise/Activities/Manual Therapy Exercises/Activities: Supine: gentle passive SB and rotation, isometric neck retraction 2x5, active SB and rotation, shoulder shrugs. Total minutes of Exercise: 6 Manual Therapy: Gentle myofascial release and STM in supine. PROM as mackenzie for SB and rotation. Total minutes of Manual Therapy: 13 HOME EXERCISE PROGRAM: isometric cervical flex, R lat flex, L lat flex, scapular retraction - Charges Timed Code Treatment Minutes: 19 Total Treatment Time: 39 Procedures billed for this date of service:: cp, estim (un), ex Assessment: Patient experiencing elevated pain today for unknown reasons. He maintained that he used caution while performing light yardwork and confident it is not a result of those tasks. He demo increased muscle guarding to the R side today rather than the L as usual. With progressed MT, he is able to perform and mackenzie increased rotation. We did modify to cryotherapy instead of heat and he did vocalize improvement with pain. Patient Education: Body/Joint mechanics, Home Exercise Program, Activity Modification Patient demonstrates compliance with HEP?: Yes Short Term Goals Goal #1: pt rate pain <6 with activity Goal to be met by: 07/28/17 Progress towards Goal:: Met Goal #2: pt independent with initial HEP Goal to be met by: 07/28/17 Progress towards Goal:: Met Goal #3: pt with decreased muscle tightness and guarding of cervical paraspinals Goal to be met by: 07/28/17 Progress towards Goal:: Partially Met [facility] Goals Goal #1: pt rate pain <4 with activity. Goal to be met by: 08/11/17 Goal #2: pt with no reports of radiating pain into shlds. Goal to be met by: 08/11/17 Goal #3: pt able to tolerate ROM cervical spine WFL's min discomfort when MD allows Goal to be met by: 08/11/17 Plan PLAN OF CARE EXPIRES ON:: 08/11/17 ORDER # VISITS AND/OR THROUGH DATE: 08/11/17 PLAN: Patient to continue as ordered for modalities and therex
--- NOTE | 2017-08-10 16:40 | RS.OPPTDN ---
Subjective Date of Note: 08/10/17 Visit #: 11 Date of Evaluation: 07/14/17 Payer Source: Workman's Comp Treatment Diagnosis: cervical pain, s/p cervical spinal fusion Current Subjective/complaints:: Patient c/o 710 pain. Says he is still having problems with the R side of his neck, being tender and hurting. He says he is still trying to get used to sleeping on his back and turning onto his side. He reports he he still cautious about the work he does, but also tries to move his neck slowly and often throughout the day. *Precautions: Wear cervical collar at all times except PT, no lifting, twisting - Treatment Modality: Electrical Stim Unattended Parameters/Method Applied: hivolt 2 small pads @ R UT 175 pk volts and L @ 145 pk volts x 20 mins Patient Position: Sitting - Heat/Cryotherapy Treatment: Cryotherapy Interventions - Exercise/Activities/Manual Therapy Exercises/Activities: Sitting: gentle passive SB and rotation, shoulder shrugs. Manual Therapy: STM and trigger work to the R UT. PROM as mackenzie for SB and rotation. Total minutes of Manual Therapy: 16 HOME EXERCISE PROGRAM: isometric cervical flex, R lat flex, L lat flex, scapular retraction - Charges Timed Code Treatment Minutes: 16 Total Treatment Time: 36 Procedures billed for this date of service:: cp, estim (un), MT Assessment: Patient continues to have elevated pain to the R UT. He does have 2 small trigger points to this area that were active. HAs are better and sleep has improved as well as ROM tolerance has increased. Patient Education: Body/Joint mechanics, Education of Plan of Care Patient demonstrates compliance with HEP?: Yes Short Term Goals Goal #1: pt rate pain <6 with activity Goal to be met by: 07/28/17 Progress towards Goal:: Met Goal #2: pt independent with initial HEP Goal to be met by: 07/28/17 Progress towards Goal:: Met Goal #3: pt with decreased muscle tightness and guarding of cervical paraspinals Goal to be met by: 07/28/17 Progress towards Goal:: Partially Met [facility] Goals Goal #1: pt rate pain <4 with activity. Goal to be met by: 08/11/17 Goal #2: pt with no reports of radiating pain into shlds. Goal to be met by: 08/11/17 Goal #3: pt able to tolerate ROM cervical spine WFL's min discomfort when MD allows Goal to be met by: 08/11/17 Plan PLAN OF CARE EXPIRES ON:: 08/11/17 ORDER # VISITS AND/OR THROUGH DATE: 08/11/17 PLAN: Patient to continue x 1 more session per order
--- NOTE | 2017-08-13 09:14 | RS.OPPTDN ---
Subjective Date of Note: 08/12/17 Visit #: 12 Date of Evaluation: 07/14/17 Payer Source: Workman's Comp Treatment Diagnosis: cervical pain, s/p cervical spinal fusion Current Subjective/complaints:: Patient says today is a good day. Reports his pain is down to ~5-6/10. He says he continues to see improvement with motion in his neck, however is slow progress. 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 *Precautions: Wear cervical collar at all times except PT, no lifting, twisting - Treatment Modality: Electrical Stim Unattended Parameters/Method Applied: 4 small pads hivolt @ 175 pk volts x 20 mins bilateral UT Patient Position: Sitting - Heat/Cryotherapy Treatment: Cryotherapy Interventions - Exercise/Activities/Manual Therapy Exercises/Activities: Sitting: gentle passive SB and rotation, shoulder shrugs. Isometric neck retraction 2x5. 3# wand for bilateral shoulder flexion to shoulder height, blue tband for scap retraction and bilateral shoulder extension 2x10. Total minutes of Exercise: 14 Manual Therapy: STM to bilateral UT and trigger work to the R UT. PROM as mackenzie for SB and rotation. Total minutes of Manual Therapy: 12 HOME EXERCISE PROGRAM: isometric cervical flex, R lat flex, L lat flex, scapular retraction - Charges Timed Code Treatment Minutes: 26 Total Treatment Time: 46 Procedures billed for this date of service:: cp, estim (un), ex, MT Assessment: Patient experiencing improved pain today and does demo improved ease with PROM to cspine ~30-40 degrees of rotation bilaterally. Patient Education: Body/Joint mechanics, Home Exercise Program, Education of Plan of Care Patient demonstrates compliance with HEP?: Yes Short Term Goals Goal #1: pt rate pain <6 with activity Goal to be met by: 07/28/17 Progress towards Goal:: Met Goal #2: pt independent with initial HEP Goal to be met by: 07/28/17 Progress towards Goal:: Met Goal #3: pt with decreased muscle tightness and guarding of cervical paraspinals Goal to be met by: 07/28/17 Progress towards Goal:: Partially Met [employer] Goals Goal #1: pt rate pain <4 with activity. Goal to be met by: 08/12/17 Progress towards goal: Progressing Goal #2: pt with no reports of radiating pain into shlds. Goal to be met by: 08/12/17 Progress towards goal: Partially Met Comments: mostly at the R C4/5 paraspinals Goal #3: pt able to tolerate ROM cervical spine WFL's min discomfort when MD allows Goal to be met by: 08/12/17 Progress towards goal: Progressing Plan PLAN OF CARE EXPIRES ON:: 08/12/17 ORDER # VISITS AND/OR THROUGH DATE: 08/12/17 PLAN: Patient has completed current orders through approved visits. Patient does not return to his MD until the end of this month. Will hold chart in order to verify if MD wishes him to continue until his follow up, which also has to be approved with work comp.
--- NOTE | 2017-09-29 13:16 | RS.OPPTDN ---
Subjective Date of Note: 08/06/17 Visit #: 10 Date of Evaluation: 07/14/17 Payer Source: Workman's Comp Treatment Diagnosis: cervical pain, s/p cervical spinal fusion Current Subjective/complaints:: Patient says his pain is fluctuating. Reports pain moves from L to R, but does have increased mobility to his neck. *Precautions: Wear cervical collar at all times except PT, no lifting, twisting - Treatment Modality: Electrical Stim Unattended Parameters/Method Applied: hivolt 4 small pads @ 175 pk volts x 20 mins to the bilateral UT Patient Position: Sitting - Heat/Cryotherapy Treatment: Cryotherapy Interventions - Exercise/Activities/Manual Therapy Exercises/Activities: Supine: gentle passive SB and rotation, isometric neck retraction 2x5, active SB and rotation, shoulder shrugs. 1# wand for bilateral short range shoulder flexion, scap retraction with yellow tband x 10. Total minutes of Exercise: 12 Manual Therapy: Gentle myofascial release and STM in supine. PROM as mackenzie for SB and rotation. Total minutes of Manual Therapy: 15 HOME EXERCISE PROGRAM: isometric cervical flex, R lat flex, L lat flex, scapular retraction - Charges Timed Code Treatment Minutes: 27 Total Treatment Time: 50 Procedures billed for this date of service:: cp, estim (un), ex, MT Assessment: Patient admits intermittent soreness to the L UT today, but is greatly eased with treatment today. Patient continues to mackenzie slow progression of therex regarding cspine ROM and scap strengthening. Patient Education: Body/Joint mechanics, Education of Plan of Care Patient demonstrates compliance with HEP?: Yes Short Term Goals Goal #1: pt rate pain <6 with activity Goal to be met by: 07/28/17 Progress towards Goal:: Met Goal #2: pt independent with initial HEP Goal to be met by: 07/28/17 Progress towards Goal:: Met Goal #3: pt with decreased muscle tightness and guarding of cervical paraspinals Goal to be met by: 07/28/17 Progress towards Goal:: Partially Met [employer] Supervisor Goals Goal #1: pt rate pain <4 with activity. Goal to be met by: 08/11/17 Goal #2: pt with no reports of radiating pain into shlds. Goal to be met by: 08/11/17 Goal #3: pt able to tolerate ROM cervical spine WFL's min discomfort when MD allows Goal to be met by: 08/11/17 Plan PLAN OF CARE EXPIRES ON:: 08/11/17 ORDER # VISITS AND/OR THROUGH DATE: 08/11/17 PLAN: Continue TIW to improve ROM, pain and stability
--- NOTE | 2017-09-29 13:53 | RS.QUICKDC ---
Discharge from PT Date of Discharge: 09/29/17 Number of Visits: 12 Reason for Discharge: Patient did not have approval from work comp to continue therapy. Patient had received orders for further treatment and contact was made to seek approval multiple times. Doug was let known to continue HEP and use heat/ice for pain. Treatment consisted of moist heat, estim, manual therapy , exercises, and cryotherapy to improve cspine ROM and postural strengthening. He reported improved mobility and pain. See daily notes for specific treatment.
== END 2017-09-02 23:59 ==
PROVIDERS: ATTEND Neurological Surgery
DX: S12.02 Unstable burst fracture of first cervical vertebra (principal); Z98.1 Arthrodesis status; M54.2 Cervicalgia

== ENCOUNTER 2017-10-25 17:11 | Emergency (ER) | payer OTHER ==
[2017-10-25 17:24] VITALS: BP 124/72; TEMP 98.5; BMI 17.9
--- NOTE | 2017-10-25 17:51 | ED.PDOC ---
General ED Provider: Dr. FAYE ROJAS Chief Complaint: Neck Pain Non-Injury Stated Complaint: neck pain Time Seen by Physician: 17:19 (hx of cervical fx s/p fusion has pain x 1 week) Mode of Arrival: Walk-In Information Source: Patient Exam Limitations: No limitations Nursing and Triage Documentation Reviewed and Agree: Yes Does patient meet sepsis criteria?: No If yes, has appropriate treatment been initiated?: No System Inflammatory Response Syndrome: Not Applicable Sepsis Protocol: For patient's 13 years and over: Temp is 96.8 and below OR 101 and greater Pulse >90 BPM Resp >20/minute Acutely Altered Mental Status Are patient's symptoms suggestive of a new infection, such as: -Pneumonia -Skin, Soft Tissue -Endocarditis -UTI -Bone, Joint Infection -Implantable Device -Acute Abdominal Infection -Wound Infection -Meningitis -Blood Stream Catheter Infection -Unknown Musculoskeletal Complaint Exam - Neck Pain Complaint/Exam Mechanism of Injury: Reports: No known trauma (turned the head last week has had intermittent pain) Onset/Duration: 7 days ago was the onset no injury Symptoms Are: Still present Timing: Intermittent Episodes Lasting: Days Initial Severity: Moderate Current Severity: Mild Location: Reports: Discrete (neck ) Character: Reports: Dull Aggravating: Reports: None Alleviating: Reports: None Associated Signs and Symptoms: Denies: Swelling, Redness, Bruising, Fever, Nuchal rigidity, Weakness, Headache, Paresthesia Related History: Reports: Similar episode Meningitis Risk Factors: Reports: None Cervical Spine Injury Risk Factors: Reports: Post-Midline CS tender, Evidence of intoxication, Altered LOC, Focal neuro deficit, Distracting injuries Related Surgical History: Reports: Cervical Fusion (retunred to work 1 month ago ) Carotid Bruit Present: No Pain on Passive Flexion: No Positive Kernig's Sign: No Tenderness: Present: Paraspinal Focal Weakness: Present: None Focal Sensory Loss: Reports: None Nexus Low Risk Criteria: No post-midline CS tender, No evidence of intoxicat., No Altered LOC, No focal neuro deficit, No distracting injuries Differential Diagnoses: Arthritis, Sprain, Strain Review of Systems - Review Of Systems Constitutional: Reports: No symptoms Eyes: Reports: No symptoms Ears, Nose, Mouth, Throat: Reports: No symptoms Respiratory: Reports: No symptoms Cardiac: Denies: Chest pain GI: Reports: No symptoms : Reports: No symptoms Musculoskeletal: Reports: Neck pain Skin: Reports: No symptoms Neurological: Reports: No symptoms Endocrine: Reports: No symptoms Hematologic/Lymphatic: Reports: No symptoms All Other Systems: Reviewed and Negative Past Medical History - Past Medical History Previously Healthy: Yes Endocrine: Reports: None Cardiovascular: Reports: None Respiratory: Reports: None Hematological: Reports: None Gastrointestinal: Reports: None Genitourinary: Reports: None Neuro/Psych: Reports: None Musculoskeletal: Reports: None Cancer: Reports: None - Surgical History General Surgical History: Reports: None - Family History Family History: Reports: None - Social History Smoking Status: Chews tobacco Hx Substance Use: No Alcohol Screening: Occasionally - Immunizations Tetanus Shot up to Date: Yes Physical Exam - Physical Exam Appearance: Well-appearing, No pain distress, Well-nourished Eyes: GARRETT, EOMI, Conjunctiva clear ENT: Ears normal, Nose normal, Oropharynx normal Respiratory: Airway patent, Breath sounds clear, Breath sounds equal, Respirations nonlabored Cardiovascular: RRR, Pulses normal, No rub, No murmur GI/: Soft, Nontender, No masses, Bowel sounds normal, No Organomegaly Musculoskeletal: Normal strength, ROM intact, No edema, No calf tenderness Skin: Warm, Dry, Normal color Neurological: Sensation intact, Motor intact, Reflexes intact, Cranial nerves intact, Alert, Oriented Psychiatric: Affect appropriate, Mood appropriate Critical Care Note - Critical Care Note Total Time (mins): 0 Course - Course Orders, Labs, Meds: Orders Category Date Time Status CT CERVICAL SPINE W/O CONTRAST Stat RADS 10/25/17 17:29 Ordered Vital Signs: Temp Pulse Resp BP Pulse Ox 10/25/17 17:18 98.5 F 66 18 124/72 97 Departure - Departure Time of Disposition: 19:00 Disposition: HOME SELF-CARE Discharge Problem: Neck pain Instructions: Neck Pain (ED), Acute Neck Pain (ED), Chronic Neck Pain (DC) Condition: Good Pt referred to PMD for follow-up: Yes IPMP verified?: No Additional Instructions: Please call your Family Physician as soon as possible to schedule a follow-up appointment. Allergies/Adverse Reactions: Allergies No Known Allergies Allergy (Verified 10/25/17 17:24)
--- NOTE | 2017-10-25 18:11 | CT ---
EXAM: CT of the cervical spine without contrast History: Cervical neck pain. Comparison: Cervical spine CT 06/02/2017 Technique: Multiplanar CT images through the cervical spine were obtained without the administration of IV contrast. Findings: The visualized upper lungs are free of consolidation. The visualized airway remains patent . Old C1 fracture with nonunited fracture fragments. No acute fracture or subluxation. Grossly inta ct posterior fusion hardware. No prevertebral soft tissue swelling. Predental space is not widened. Bony spinal canal is not significantly compromised. Moderate left-sided bony neural foraminal narr owing at C6-7 secondary to uncovertebral and facet hypertrophy. Impression: 1. No acute osseous abnormality of the cervical spine. 2. Grossly intact hardware. 3. Old C1 fracture with nonunited fracture fragments. 4. Moderate left-sided bony neural foraminal narrowing at C6-7 secondary to uncovertebral and facet hypertrophy.
== END 2017-10-25 18:20 | disposition home or self-care (01) ==
LOC: ED 17:11
DX: M54.2 Cervicalgia (principal)
CPT/HCPCS: 99282

== ENCOUNTER 2017-12-12 10:22 | Emergency (ER) | payer OTHER ==
[2017-12-12 10:25] VITALS: BP 105/66; TEMP 99.6; BMI 20.9
[2017-12-12] MEDS ORDERED: DECADRON 4 MG/ML SDV IM STA (10:28)
[2017-12-12] MEDS ORDERED: BENADRYL IM STA (10:29)
[2017-12-12] MEDS ORDERED: ZANTAC PO STA (10:29)
--- NOTE | 2017-12-12 10:46 | ED.PDOC ---
General ED Provider: Dr. KATERYNA MCCOY-ER Chief Complaint: Allergic Reaction Stated Complaint: my hands are swollen and i have a rash Time Seen by Physician: 10:30 Mode of Arrival: Walk-In Information Source: Patient Exam Limitations: No limitations Nursing and Triage Documentation Reviewed and Agree: Yes Does patient meet sepsis criteria?: No System Inflammatory Response Syndrome: Not Applicable Sepsis Protocol: For patient's 13 years and over: Temp is 96.8 and below OR 101 and greater Pulse >90 BPM Resp >20/minute Acutely Altered Mental Status Are patient's symptoms suggestive of a new infection, such as: -Pneumonia -Skin, Soft Tissue -Endocarditis -UTI -Bone, Joint Infection -Implantable Device -Acute Abdominal Infection -Wound Infection -Meningitis -Blood Stream Catheter Infection -Unknown Skin Complaint Exam - Skin Rash/Itching Complaint/Exam Onset/Duration: several hours Symptoms Are: Still present Initial Severity: Mild Current Severity: Moderate Location: face, trunk extremities Potential Exposures: Reports: Unknown Aggravating: Reports: None Alleviating: Reports: None Associated Signs and Symptoms: Denies: Difficulty breathing, Fever, Chills Skin Findings: Present: Urticaria Differential Diagnoses: Allergic Reaction Review of Systems - Review Of Systems Constitutional: Reports: No symptoms Eyes: Reports: No symptoms Ears, Nose, Mouth, Throat: Reports: No symptoms Respiratory: Reports: No symptoms Cardiac: Reports: No symptoms GI: Reports: No symptoms : Reports: No symptoms Musculoskeletal: Reports: No symptoms Skin: Reports: Rash Neurological: Reports: No symptoms Endocrine: Reports: No symptoms Hematologic/Lymphatic: Reports: No symptoms All Other Systems: Reviewed and Negative Past Medical History - Past Medical History Previously Healthy: Yes Endocrine: Reports: None Cardiovascular: Reports: None Respiratory: Reports: None Hematological: Reports: None Gastrointestinal: Reports: None Genitourinary: Reports: None Neuro/Psych: Reports: None Musculoskeletal: Reports: None Cancer: Reports: None - Surgical History General Surgical History: Reports: None - Family History Family History: Reports: None - Social History Smoking Status: Chews tobacco Hx Substance Use: No Alcohol Screening: Occasionally Physical Exam - Physical Exam Appearance: Well-appearing Eyes: GARRETT, EOMI, Conjunctiva clear ENT: Ears normal, Nose normal, Oropharynx normal Neck: Supple Respiratory: Airway patent, Breath sounds clear, Breath sounds equal, Respirations nonlabored Cardiovascular: RRR, Pulses normal, No rub, No murmur GI/: Soft, Nontender, No masses, Bowel sounds normal, No Organomegaly Musculoskeletal: Normal strength, ROM intact, No edema, No calf tenderness Skin: Warm, Dry, Normal color Neurological: Sensation intact, Motor intact, Reflexes intact, Cranial nerves intact, Alert, Oriented Psychiatric: Affect appropriate, Mood appropriate Re-Evaluation - Re-Evaluation Time of Re-Evaluation: 11:17 Status: Improved Vital Signs Stable: Yes Pain Level: 0 Appearance: NAD Lungs: Clear Skin: Warm and Dry Neuro: Alert and Oriented X3 CV: RRR Additional Comments: rash resolving--no abd pain or trouble breathing Critical Care Note - Critical Care Note Total Time (mins): 0 Course - Course Orders, Labs, Meds: Orders Category Date Time Status Dexamethasone 4 mg/ml Inj [Decadron 4 mg/ml Sdv] MEDS 12/12/17 10:28 Discontinued 8 mg IM ONCE STA Diphenhydramine Inj [Benadryl] MEDS 12/12/17 10:29 Discontinued 50 mg IM ONCE STA Ranitidine HCl [Zantac] MEDS 12/12/17 10:29 Discontinued 300 mg PO ONCE STA Medications Discontinued Medications Generic Name Dose Route Start Last Admin Trade Name Freq PRN Reason Stop Dose Admin Dexamethasone Sodium Phosphate 8 mg 12/12/17 10:28 12/12/17 10:36 Decadron 4 Mg/Ml Sdv IM 12/12/17 10:29 8 mg ONCE STA Administration Diphenhydramine HCl 50 mg 12/12/17 10:29 12/12/17 10:37 Benadryl IM 12/12/17 10:30 50 mg ONCE STA Administration Ranitidine HCl 300 mg 12/12/17 10:29 12/12/17 10:35 Zantac PO 12/12/17 10:30 300 mg ONCE STA Administration Vital Signs: Temp Pulse Resp BP Pulse Ox 12/12/17 10:23 99.6 F 100 H 20 105/66 98 Departure - Departure Time of Disposition: 11:17 Disposition: HOME SELF-CARE Discharge Problem: Allergic state Instructions: Urticaria (ED) Condition: Good Pt referred to PMD for follow-up: Yes IPMP verified?: No Additional Instructions: keep in cool environment today===prednisone 30mg and taper--zyrtec 10mg #30--- zantac 150mg bid #30--f/u with pcp Allergies/Adverse Reactions: Allergies No Known Allergies Allergy (Verified 12/12/17 10:26) Home Medications: Ambulatory Orders 1 [No Reported Medications] 12/12/17 Disposition Discussed With: Patient
== END 2017-12-12 11:27 | disposition home or self-care (01) ==
LOC: ED 10:22
DX: L50.0 Allergic urticaria (principal); Z72.0 Tobacco use
CPT/HCPCS: 96372; 99282

== ENCOUNTER 2018-02-10 13:17 | Emergency (ER) ==
[2018-02-10 13:17] VITALS: BMI 20.9
[2018-02-10 13:19] VITALS: BP 110/67; TEMP 97.8
--- NOTE | 2018-02-10 14:11 | ED.PDOC ---
General ED Provider: Dr. KATERYNA NOBLES Chief Complaint: Neck Pain Non-Injury Stated Complaint: Rt sided posterior neck pain. 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 Denies radiculating features. Time Seen by Physician: 14:00 Mode of Arrival: Walk-In Information Source: Patient Exam Limitations: No limitations Nursing and Triage Documentation Reviewed and Agree: Yes Does patient meet sepsis criteria?: No System Inflammatory Response Syndrome: Not Applicable Sepsis Protocol: For patient's 13 years and over: Temp is 96.8 and below OR 101 and greater Pulse >90 BPM Resp >20/minute Acutely Altered Mental Status Are patient's symptoms suggestive of a new infection, such as: -Pneumonia -Skin, Soft Tissue -Endocarditis -UTI -Bone, Joint Infection -Implantable Device -Acute Abdominal Infection -Wound Infection -Meningitis -Blood Stream Catheter Infection -Unknown Musculoskeletal Complaint Exam - Neck Pain Complaint/Exam Mechanism of Injury: Reports: No known trauma Onset/Duration: yesterday Symptoms Are: Still present Timing: Constant Episodes Lasting: Hours Initial Severity: Moderate Current Severity: Moderate Location: Reports: Diffuse Character: Reports: Dull, Aching, Spasmodic, Stiffness Aggravating: Reports: Position, Movement Alleviating: Reports: Position, OTC meds, Ice Associated Signs and Symptoms: Denies: Swelling, Redness, Bruising, Fever, Nuchal rigidity, Weakness, Headache, Paresthesia Related History: Reports: Similar episode Related Surgical History: Reports: Cervical Fusion Carotid Bruit Present: No Pain on Passive Flexion: No Positive Kernig's Sign: No ROM Limited In: Present: Flexion, Right, Left, Side bending, Rotation Tenderness: Present: Paraspinal Focal Weakness: Present: None Focal Sensory Loss: Reports: None Differential Diagnoses: Sprain, Strain Review of Systems - Review Of Systems Constitutional: Reports: No symptoms Eyes: Reports: No symptoms Ears, Nose, Mouth, Throat: Reports: No symptoms Respiratory: Reports: No symptoms Cardiac: Reports: No symptoms GI: Reports: No symptoms : Reports: No symptoms Musculoskeletal: Reports: No symptoms Skin: Reports: No symptoms Neurological: Reports: No symptoms Endocrine: Reports: No symptoms Hematologic/Lymphatic: Reports: No symptoms All Other Systems: Reviewed and Negative Past Medical History - Past Medical History Previously Healthy: Yes Endocrine: Reports: None Cardiovascular: Reports: None Respiratory: Reports: None Hematological: Reports: None Gastrointestinal: Reports: None Genitourinary: Reports: None Neuro/Psych: Reports: None Musculoskeletal: Reports: None Cancer: Reports: None - Surgical History General Surgical History: Reports: None - Family History Family History: Reports: None - Social History Smoking Status: Chews tobacco Hx Substance Use: No Alcohol Screening: Occasionally - Immunizations Tetanus Shot up to Date: No Physical Exam - Physical Exam Appearance: Well-appearing, No pain distress, Well-nourished Ill-appearing: None Pain Distress: None Eyes: GARRETT, EOMI, Conjunctiva clear ENT: Ears normal, Nose normal, Oropharynx normal Respiratory: Airway patent, Breath sounds clear, Breath sounds equal, Respirations nonlabored Cardiovascular: RRR, Pulses normal, No rub, No murmur GI/: Soft, Nontender, No masses, Bowel sounds normal, No Organomegaly Musculoskeletal: Normal strength, No edema, No calf tenderness, Limited ROM, Edema Skin: Warm, Dry, Normal color Neurological: Sensation intact, Motor intact, Reflexes intact, Cranial nerves intact, Alert, Oriented Psychiatric: Affect appropriate, Mood appropriate Interpretation - Radiology Interpretation Radiology Interpretation By: Radiologist Radiology Results: No acute changes Xray Comments: Reviewed with patient-previouls fusion /?thyroglossal cyst-pt states chron Critical Care Note - Critical Care Note Total Time (mins): 0 Course - Course Orders, Labs, Meds: Orders Category Date Time Status Ketorolac Tromethamine [Toradol] MEDS 02/10/18 14:56 Discontinued 30 mg IM ONCE STA CT CERVICAL SPINE W/O CONTRAST Stat RADS 02/10/18 14:09 Completed Medications Discontinued Medications Generic Name Dose Route Start Last Admin Trade Name Johnny PRN Reason Stop Dose Admin Ketorolac Tromethamine 30 mg 02/10/18 14:56 02/10/18 15:06 Toradol IM 02/10/18 14:57 30 mg ONCE STA Administration Vital Signs: Temp Pulse Resp BP Pulse Ox 02/10/18 13:17 97.8 F 87 18 110/67 98 Departure - Departure Time of Disposition: 15:20 Disposition: HOME SELF-CARE Discharge Problem: Cervicalgia, Cervical paraspinous muscle spasm, Cyst of neck Instructions: Cervical Strain (ED), Acute Neck Pain (ED) Condition: Good Pt referred to PMD for follow-up: No IPMP verified?: No Additional Instructions: CT Scan reviewed Take meds as needed for pain Flexeril for relief of spasm and Toradol for pain See PCP in 1 week to review results of CT scan (suspicious for possible Thyroglossal duct cyst. Prescriptions: Cyclobenzaprine HCl [Flexeril] 10 mg PO BID #15 tablet Ketorolac Tromethamine [Toradol] 10 mg PO Q6H PRN #20 tablet PRN Reason: Neck pain Allergies/Adverse Reactions: Allergies No Known Allergies Allergy (Verified 02/10/18 13:19) Home Medications: Ambulatory Orders Cyclobenzaprine HCl [Flexeril] 10 mg PO BID #15 tablet 02/10/18 Ketorolac Tromethamine [Toradol] 10 mg PO Q6H PRN #20 tablet 02/10/18 Disposition Discussed With: Patient
[2018-02-10] MEDS ORDERED: TORADOL IM STA (14:56)
--- NOTE | 2018-02-10 15:13 | CT ---
Exam: CT cervical spine without intravenous contrast. Comparison: 10/25/2017. Reason for exam: Previous fracture. FINDINGS: Operative changes are seen after OC fusion spanning from the occiput to C4. There is no e vidence of hardware complication. Anatomic alignment is unchanged. There is mild straightening of t he cervical lordotic curve. Mild degenerative disease is seen in the cervical spine, most notably wi th posterior osteophyte formation at C6-7. Nonspecific appearing cystic structure in the soft tissues of the anterior neck Impression: 1. Similar appearing occipitocervical fusion without evidence of hardware complication. 2. Mild degenerative disease. 3. Nonspecific, partially imaged, cystic structure measuring approximately 11 mm in the anterior nec k soft tissues may represent a thyroglossal duct cyst. If clinical concern exists, further evaluatio n may be performed.
== END 2018-02-10 15:37 | disposition home or self-care (01) ==
LOC: ED 13:17
DX: M54.2 Cervicalgia (principal); M62.838 Other muscle spasm; R22.1 Localized swelling, mass and lump, neck; Z72.0 Tobacco use
CPT/HCPCS: 96372; 99283